=== PATIENT | male | born 1935 | race Caucasian/White ===

== ENCOUNTER 2019-10-19 18:16 | Inpatient (IN) | payer MEDICARE ==
[~2019-10-19] VITALS: Ht 177.8 cm; Wt 100.3 kg
[2019-10-19 18:54] LABS: BASOPHILS ABSOLUTE AUTO 0.03 K/mm3 (0.00-0.23); BASOPHILS PERCENT AUTO 0 % (0-2); EOSINOPHILS ABSOLUTE AUTO 0.02 K/mm3 (0.00-0.68); EOSINOPHILS PERCENT AUTO 0 % (0-6); Hematocrit 41.1 % (37.0-53.0); Hemoglobin 13.8 g/dL (13.5-17.5); IMMATURE GRAN ABSOLUTE AUTO 0.03 K/mm3 (0.00-0.10); IMMATURE GRAN PERCENT AUTO 0 % (0-1); LYMPHOCYTES ABSOLUTE AUTO 1.39 K/mm3 (0.84-5.20); LYMPHOCYTES PERCENT AUTO 15 % (21-46); MONOCYTES ABSOLUTE AUTO 0.77 K/mm3 (0.16-1.47); MONOCYTES PERCENT AUTO 8 % (4-13); Mean Corpuscular HGB 29.6 pg (26.0-34.0); Mean Corpuscular HGB Conc 33.6 g/dL (31.5-36.5); Mean Corpuscular Volume 88 fL (80-100); NEUTROPHILS ABSOLUTE AUTO 7.11 K/mm3 (1.96-9.15); NEUTROPHILS PERCENT AUTO 76 % (41-73); Platelet Count 322 K/mm3 (150-400); RDW Coefficient Variation 13.2 % (11.7-14.2); RDW Standard Deviation 43.1 fL (35.1-46.3); Red Blood Cell Count 4.66 M/mm3 (4.30-5.90); White Blood Cell Count 9.35 K/mm3 (4.00-11.30)
[2019-10-19 19:10] LABS: Alanine Aminotransfer (ALT/SGP 29 U/L (12-78); Albumin, Blood 3.9 g/dL (3.4-5.0); Albumin/Globulin Ratio 0.9 (0.8-1.8); Alk Phos 133 U/L (50-136); Anion Gap 7 mmol/L (6-16); Aspartate Aminotrans (AST/SGOT 27 U/L (12-37); Bilirubin, Total 0.8 mg/dL (0.1-1.0); Blood Urea Nitrogen 18 mg/dL (8-24); Bun/Creatinine Ratio 15.4 (12.0-20.0); CO2, Blood 23 mmol/L (21-32); Calcium, Blood 9.8 mg/dL (8.5-10.1); Chloride, Blood 106 mmol/L (98-108); Creatinine, Blood 1.17 mg/dL (0.60-1.20); Globulin, Blood 4.2 g/dL (2.2-4.0); Glomerular Filtration Rate >60 (60-); Glucose, Blood 130 mg/dL (70-99); Sodium, Blood 136 mmol/L (136-145); Total Protein, Blood 8.1 g/dL (6.4-8.2)
[2019-10-19 19:36] LABS: Source, Urine Clean Catch
[2019-10-19 19:57] LABS: Appearance, Urine Hazy (Clear); Bilirubin, Urine Neg (Neg); Blood, Urine 4+ (Neg); Color, Urine Yellow (P-Yellow); Glucose Qualitative, Urine Neg (Neg); Ketones, Urine 3+ (Neg); Leukocyte Esterase, Urine 3+ (Neg); Nitrite, Urine Pos (Neg); Protein, Urine 2+ (Neg); Urobilinogen, Urine NORM (Normal)
[2019-10-19 20:23] LABS: Bacteria Many /hpf; Red Blood Cells, Urine 0-2 /hpf (0-2); Squamous Epithelial Cells Not Seen /hpf (Few); White Blood Cells, Urine TNTC /hpf (0-5)
[2019-10-19] MEDS ORDERED: TROSPIUM CHLORI60 MG PO (21:07)
[2019-10-19] MEDS ORDERED: Midodrine HCl2.5 MG PO (21:07)
[2019-10-19] MEDS ORDERED: SOLIFENACIN SUCC5 MG PO (21:08)
[2019-10-19] MEDS ORDERED: NEURONTIN300 MG PO (21:08)
[2019-10-19] MEDS ORDERED: MONT4 (21:08)
[2019-10-19] MEDS ORDERED: VENL75ER PO (21:08)
[2019-10-19] MEDS ORDERED: Simvastatin80 MG PO (21:08)
[2019-10-19] MEDS ORDERED: Flonase 0.05% N16 GM (21:08)
--- NOTE | 2019-10-19 21:30 | NUR ---
Patient states he has eaten since last night and nothing to drink since 1030 today. Patient states he understands planned procedure and agrees with plan.
--- NOTE | 2019-10-19 21:35 | NUR ---
PATIENT GAVE HIS LEFT HEARING AID TO HIS AND HE REPORTS LEAVING HIS PARTIAL DENTURES AT HOME.
--- NOTE | 2019-10-19 21:36 | NUR ---
10/19/19 2136 Yaakov Bearden History, Chart, Medications and Allergies reviewed before start of procedure.MONITOR INTACT WITH CONTINUOUS PULSE OXIMETRY AND INTERMITTENT BP.3-LEAD EKG REVIEWED WITH PHYSICIAN PRIOR TO START OF PROCEDURE.O2 VIA N/C INTACT THROUGHOUT SEDATION/PROCEDURE. PATIENT DETERMINED TO BE ASA APPROPRIATE FOR PROPOFOL SEDATION PRIOR TO START OF PROCEDURE BY DR. ESPINOZA.
[2019-10-19] MEDS ORDERED: Aspir 8181 MG PO (22:36)
[2019-10-19] MEDS ORDERED: TAMS.4ER PO (22:37)
[2019-10-20 04:05] LABS: BASOPHILS ABSOLUTE AUTO 0.03 K/mm3 (0.00-0.23); BASOPHILS PERCENT AUTO 0 % (0-2); EOSINOPHILS ABSOLUTE AUTO 0.09 K/mm3 (0.00-0.68); EOSINOPHILS PERCENT AUTO 1 % (0-6); Hematocrit 37.7 % (37.0-53.0); Hemoglobin 12.5 g/dL (13.5-17.5); IMMATURE GRAN ABSOLUTE AUTO 0.01 K/mm3 (0.00-0.10); IMMATURE GRAN PERCENT AUTO 0 % (0-1); LYMPHOCYTES ABSOLUTE AUTO 1.16 K/mm3 (0.84-5.20); LYMPHOCYTES PERCENT AUTO 17 % (21-46); MONOCYTES PERCENT AUTO 13 % (4-13); Mean Corpuscular HGB 29.2 pg (26.0-34.0); Mean Corpuscular HGB Conc 33.2 g/dL (31.5-36.5); Mean Corpuscular Volume 88 fL (80-100); Mean Platelet Volume 9.7 fL (9.1-12.4); NEUTROPHILS ABSOLUTE AUTO 4.83 K/mm3 (1.96-9.15); NEUTROPHILS PERCENT AUTO 69 % (41-73); Platelet Count 264 K/mm3 (150-400); RDW Coefficient Variation 13.3 % (11.7-14.2); RDW Standard Deviation 43.1 fL (35.1-46.3); Red Blood Cell Count 4.28 M/mm3 (4.30-5.90); White Blood Cell Count 7.02 K/mm3 (4.00-11.30)
[2019-10-20 04:23] LABS: Anion Gap 7 mmol/L (6-16); Blood Urea Nitrogen 17 mg/dL (8-24); Bun/Creatinine Ratio 14.8 (12.0-20.0); CO2, Blood 25 mmol/L (21-32); Chloride, Blood 109 mmol/L (98-108); Creatinine, Blood 1.15 mg/dL (0.60-1.20); Glomerular Filtration Rate >60 (60-); Glucose, Blood 103 mg/dL (70-99); Potassium, Blood 3.6 mmol/L (3.5-5.5); Sodium, Blood 141 mmol/L (136-145)
--- NOTE | 2019-10-20 05:52 | NUR ---
SHIFT SUMMARY PT RESTED WELL POST SCOPE. AAOX4/KWIGILLINGOK. PT DENIES DISCOMFORT/NAUSEA/EMESIS ALL NOC SHIFT. UP TO RESTROOM SBA. TOLERATING CLEAR LIQUIDS. GOOD URINE OUTPUT, NO STOOL THIS SHIFT. MIRALAX + SENNA GIVEN PER ORDERS. HTN NOTED + PT REPORTING "ITS NORMAL WHEN I AM IN THE HOSPITAL," WILL CONTINUE TO MONITOR. WAITING CALL FOR POSSIBLE DC TODAY, NUMBER ON CHART. PT RESTING AT THIS TIME WITH CALL LIGHT IN REACH.
--- NOTE | 2019-10-20 14:35 | NUR ---
PT TRANSFERRED TO [facility] VIA GURNEY FROM [facility]. History, Chart, Medications and Allergies reviewed before start of procedure. Lungs clear T/O to Auscultation. PROCEDURE TO BE DONE WITHOUT SEDATION ORDERED BY DOCTOR.
--- NOTE | 2019-10-20 14:49 | NUR ---
10/20/19 1449 MARIEL HODGES History, Chart, Medications and Allergies reviewed before start of procedure. 3-LEAD EKG REVIEWED WITH PHYSICIAN PRIOR TO START OF PROCEDURE.O2 VIA N/C INTACT THROUGHOUT PROCEDURE. PROCEDURE DONE WITHOUT SEDATION PER DR. DENSON.
--- NOTE | 2019-10-20 15:10 | NUR ---
PT ARRIVES POST PROCEDURE. ALERT, ORIENTED. DENIES PAIN OR ABD PRESSURE. GI MD INTO ROOM. PT TO CONTINUE BOWEL PREP FOR PROCEDURE TOMORROW.
--- NOTE | 2019-10-20 17:01 | NUR ---
SHIFT SUMMARY WHILE PT WAS HOPEFUL TO GO HOME TODAY, HIS PLANS CHANGED. PT WAS TAKEN BACK FOR A REPEAT SCOPE AND IS NOW PREPPING WITH [facility] FOR OR TOMORROW. IND IN ROOM. UP TO CHAIR. VOIDING AND HAVING STOOLS.
--- NOTE | 2019-10-21 04:00 | NUR ---
DR. TREVIZO NOTIFIED DR. TREVIZO NOTIFIED THAT PT HAS NOT HAD A BM IN SEVERAL HOURS AND STOOL IS BROWN IN COLOR. NO NEW ORDERS AT THIS TIME. WILL CONT TO MONITOR.
--- NOTE | 2019-10-21 06:42 | NUR ---
SHIFT SUMMARY PT A/OX4 WITH VSS. NO ACUTE CHANGES. IND IN ROOM. STILL HAS SOME ABD DISTENTION, DENIES PAIN. APPEARS TO HAVE SLEPT T/O MOST OF SHIFT. NPO SINCE MIDNIGHT. PLAN FOR SURGERY TODAY. PT IS CURRENTLY RESTING IN BED WITH CALL LIGHT IN REACH AND BED AT LOWEST POSITION.
--- NOTE | 2019-10-21 07:50 | NUR ---
PT TO OR AT THIS TIME.
--- NOTE | 2019-10-21 15:33 | NUR ---
PT ARRIVED BACK TO THE ROOM AT APPROXIMATELY 1310. PT DROWSY BUT ORIENTED. PT'S AT THE BEDSIDE. PT STARTED COUGHING IN PRE-OP AND WAS PLACED IN DROPPLET ISOLATION. VSS. PT HAS DECREASED SENSATION FROM T8 TO T4. HE IS ABLE TO MOVE HIS FEET AND WIGGLE HIS TOES.
[2019-10-21 20:30] LABS: Adenovirus Not Detected (NOT DETECT); Coronavirus 229E Not Detected (NOT DETECT); Coronavirus HKU1 Not Detected (NOT DETECT); Coronavirus NL63 Not Detected (NOT DETECT)
[2019-10-21 20:31] LABS: Bordetella pertussis Not Detected (NOT DETECT); Chlamydophila pneumoniae Not Detected (NOT DETECT); Coronavirus OC43 Not Detected (NOT DETECT); Human Metapneumovirus Not Detected (NOT DETECT); Human Rhinovirus/Enterovirus Not Detected (NOT DETECT); Influenza A/2009-H1 Not Detected (NOT DETECT); Influenza A/H1 Not Detected (NOT DETECT); Influenza A/H3 Not Detected (NOT DETECT); Influenza B Not Detected (NOT DETECT); Mycoplasma pneumoniae Not Detected (NOT DETECT); Parainfluenza Virus 1 Not Detected (NOT DETECT); Parainfluenza Virus 2 Not Detected (NOT DETECT); Parainfluenza Virus 3 Not Detected (NOT DETECT); Parainfluenza Virus 4 Not Detected (NOT DETECT); Respiratory Syncytial Virus Not Detected (NOT DETECT)
--- NOTE | 2019-10-22 04:08 | NUR ---
SMALL AMOUNT SANGUINOUS DRAINAGE NOTED AROUND EPIDURAL SITE. PT STATES PAIN IS MANAGED WELL CURRENTLY. DRAINAGE IS DRY UNDER DRESSING.
--- NOTE | 2019-10-22 04:32 | NUR ---
SHIFT SUMMARY AA0X4, VSS. PT DENIES GAS TODAY. PICCO DRESSING COMPRESSED, GREEN LIGHT ON, DRY SS DRAINAGE. PT REPORTS PAIN TOLERABLE WITH EPIDURAL. USING BUTTON. DRESSING CHANGED BY MD AT BEGINNING OF SHIFT. SOME SS DRAINAGE IN DRESSING UPON ASSESSMENT. DENIES NUMBNESS WITH ASSESSMENT. PT REPOSITIONING SELF FREQUENTLY. SOSA PATENT AND DRAINING. EATING ICE CHIPS OCCASIONALLY.
[2019-10-22 05:27] LABS: BASOPHILS ABSOLUTE AUTO 0.01 K/mm3 (0.00-0.23); BASOPHILS PERCENT AUTO 0 % (0-2); EOSINOPHILS PERCENT AUTO 0 % (0-6); Hemoglobin 10.7 g/dL (13.5-17.5); IMMATURE GRAN ABSOLUTE AUTO 0.03 K/mm3 (0.00-0.10); IMMATURE GRAN PERCENT AUTO 0 % (0-1); LYMPHOCYTES ABSOLUTE AUTO 0.98 K/mm3 (0.84-5.20); LYMPHOCYTES PERCENT AUTO 10 % (21-46); MONOCYTES ABSOLUTE AUTO 0.95 K/mm3 (0.16-1.47); MONOCYTES PERCENT AUTO 10 % (4-13); Mean Corpuscular HGB 29.5 pg (26.0-34.0); Mean Corpuscular HGB Conc 33.4 g/dL (31.5-36.5); Mean Corpuscular Volume 88 fL (80-100); Mean Platelet Volume 9.9 fL (9.1-12.4); NEUTROPHILS ABSOLUTE AUTO 7.47 K/mm3 (1.96-9.15); NEUTROPHILS PERCENT AUTO 79 % (41-73); Platelet Count 224 K/mm3 (150-400); RDW Coefficient Variation 13.6 % (11.7-14.2); RDW Standard Deviation 43.9 fL (35.1-46.3); Red Blood Cell Count 3.63 M/mm3 (4.30-5.90); White Blood Cell Count 9.44 K/mm3 (4.00-11.30)
[2019-10-22 05:48] LABS: Anion Gap 6 mmol/L (6-16); Blood Urea Nitrogen 14 mg/dL (8-24); Bun/Creatinine Ratio 14.5 (12.0-20.0); CO2, Blood 25 mmol/L (21-32); Calcium, Blood 8.3 mg/dL (8.5-10.1); Chloride, Blood 107 mmol/L (98-108); Creatinine, Blood 0.97 mg/dL (0.60-1.20); Glomerular Filtration Rate >60 (60-); Glucose, Blood 115 mg/dL (70-99); Potassium, Blood 3.4 mmol/L (3.5-5.5); Sodium, Blood 138 mmol/L (136-145)
--- NOTE | 2019-10-22 15:06 | NUR ---
PT HAS RESTED IN HIS ROOM. HE HAS BEEN OOB TO THE CHAIR AND CALLS APPROPRIATELY. VSS. WILL CONTINUE TO MONITOR.
--- NOTE | 2019-10-22 18:29 | NUR ---
SHIFT SUMMARY PAIN HAS BEEN WELL MANAGED WITH EPIDURAL THIS SHIFT. EPIDURAL SITE APPEARS TO HAVE NO FURTHER DRAINAGE SINCE NOON. PT WAS ABLE TO GET OOB TO THE CHAIR FOR LUNCH WITH MINIMAL ASSIST. PT DENIES PASSING FLATUS THIS SHIFT. PT HAS DECREASED SENSATION FROM T8-L3 FROM EPIDURAL. PT STARTED ON CLEAR LIQUIDS, HE IS TOLERATING WELL. VSS. WILL MONITOR UNTIL REPORT TO ONCOMING RN.
--- NOTE | 2019-10-23 07:35 | NUR ---
POD 2 S/P COLECTOMY. PT VSS, SATS >90% ON 2LNC WHILE AWAKE, PT DID NEED 7LO2 BLED INTO CPAP TO KEEP SATS >90% WHILE SLEEPING. SATS DROPPED TO 85% W/CPAP ONLY. TERESA DRESSING INTACT W/NO ACTIVE DRNG. EPIDURAL INTACT, W/SCANT LEAKAGE, NO CHANGES T/O SHIFT. PT REP FULL SENSATION, NO N/T, REP PAIN MINIMAL 2/10. PT INGRID CLEAR LIQ PO, NO N/V, REP NO FLATUS YET. CONT OX IN PLACE, PT USING CALL LIGHT FOR ASSISTANCE. ISOLATION PRECAUTIONS MAINTAINED. REP GIVEN TO DAY RN.
--- NOTE | 2019-10-23 09:44 | NUR ---
ANESTHISIA HERE AND DC'D EPIDURAL.
--- NOTE | 2019-10-23 10:14 | NUR ---
DR ROMANO HERE TO SEE PT, DISCUSSED PT'S STATUS/CONCERN OF MIDODRINE.
--- NOTE | 2019-10-23 11:22 | NUR ---
PER DR ROMANO AND PRIMARY RN PT REQUESTING NEW DOCTOR AND WOULD ALSO LIKE TO SPEAK WITH THE PATIENT ADVOCATE. PT ADVOCATE NOTIFIED AND HER NUMBER WAS GIVEN TO PRIMARY RN SO PT COULD CALL AND SPEAK WITH HER. HOSPITALIST OFFICE CONTACTED BY THIS RN AND PT RE-ASSIGNED TO DR OLIVAREZ WHO WAS NOTIFIED BY THIS RN AT APROX 1115.
--- NOTE | 2019-10-23 11:55 | NUR ---
10/23/19 1155 Dalia Ross VERIFICATIONS: EDIT CHART.
--- NOTE | 2019-10-23 16:02 | NUR ---
IAN PINEDO DC'D PER ANESTHESIA.
--- NOTE | 2019-10-23 16:41 | NUR ---
SHIFT SUMMARY PT TOLERATING C.L. DIET. PT BEEN UP IN ROOM WITH STEADY GAIT. PT SOSA RECENTLY DC'D EPIDURAL WAS OUT EARLIER TODAY. PT ALSO GIVEN LOVENOX ORDERED. PT CONT TO DENY WANTING ANY PAIN MEDICATION EVEN THE TYLENOL. PT REQUESTED DIFFERENT DR EARLIER WELL TO TALK WITH PT ADVOCATE. PT WAS SEEN BY DR OLIVAREZ AND WAS GIVEN THE NUMBER TO CALL AND TALK WITH THE PT ADVOCATE. PT BEEN ASSISTED WITH ADL'S PRN. DISCUSSED PT'S VS INCLUIDING BP WITH DR OLIVAREZ. PT REPORTED PASSING GAS THIS AFTERNOON WHICH IS UNUSUAL FOR HIM. ALSO REPORTED NO OTHER BM'S SINCE THIS AM, WHICH HE HAD 2, SEE I/O. PT GIVEN URINAL TO VOID IN.
--- NOTE | 2019-10-24 04:37 | NUR ---
SHIFT SUMMARY PT IS A/O X4 AND IND. IN ROOM WITH OCC. STANDBY ASSIST FOR LINES. PT HAS BEEN WEARING CPAP WITH 7L O2 DURING THE NIGHT. BIOX IN PLACE. PT HAS AMBULATED TO BATHROOM MULT TIMES DURING THE NIGHT; VOIDING AND HAVING BMS. TOLERATING PO INTAKE. RESPIRATORY CARE HAS BEEN IN TO SEE PT DURING THE SHIFT. ASSISTED [facility] ADL'S PRN.
--- NOTE | 2019-10-24 08:54 | NUR ---
DR OLIVAREZ HERE TO SEE PT. DISCUSSED PT'S STATUS INCLUDING VS AND BIPAP LAST NIGHT WITH O2 PER HS RN.
--- NOTE | 2019-10-24 15:21 | NUR ---
[facility] LAB CALLED TO NOTIFY RN THAT TEST WAS NEGATIVE.
--- NOTE | 2019-10-24 15:36 | NUR ---
DR NOTIFIED OF [facility].
--- NOTE | 2019-10-24 16:00 | NUR ---
SHIFT SUMMARY PT EATING AND DRINKING, VOIDING AND HAD BM TODAY. PT R/O COVID CAME BACK NEGATIVE TODAY. PT BEEN ASSISTED WITH ADL'S PRN. PT BEEN UP IND IN ROOM. PT OFFERED SHOWER AND DECLINED EARLIER, LINEN CHANGED EARLIER TODAY. DR OLIVAREZ NOTIFIED OF LAB BACK THIS AFTERNOON.
--- NOTE | 2019-10-24 17:02 | NUR ---
REPORT GIVEN TO Reji WHO IS TAKING OVER CARE AT THIS TIME.
--- NOTE | 2019-10-25 04:02 | NUR ---
SHIFT SUMMARY POD#4. AAOX4/ZUNI. DISCOMFORT AT TOLERABLE LEVEL T/O NIGHT, NO PAIN MEDS OR NAUSEA MEDICATION ADMINISTERED. ABD INCISION WITH TERESA C/D/I. PT UP INDEPENDENT IN ROOM. GOOD PO INTAKE + OUTPUT. PT REPORTING LARGE AMOUNTS OF FLATUS + DIARRHEA, HELD STOOL SOFTNERS. PT RESTED WELL T/O NIGHT WITH CPAP IN PLACE WITH 6L O2 ADDITION. SLEEP STUDY STILL IN PROGRESS. HTN NOTED, NO ACUTE CHANGE + MD AWARE PER PROGRESS NOTES. NO ACUTE CHANGES OVER NIGHT. CALL LIGHT WITHIN REACH AT THIS TIME.
--- NOTE | 2019-10-25 09:13 | NUR ---
DR MADDOX ROUNDED. TERESA REMOVED. OK FOR DC.
[2019-10-25] MEDS ORDERED: ACET325 PO (09:40)
[2019-10-25] MEDS ORDERED: Doxycycline Mo100 M1 PO (09:41)
[2019-10-25] MEDS ORDERED: GAVILAX17 GM PO (09:42)
--- NOTE | 2019-10-25 10:10 | NUR ---
DISCHARGE PT ESCORTED OUT VIA W/C. SCRIPT CALLED TO [facility] PER PT REQUEST. PT STATES UNDERSTANDING OF INSTRUCTIONS.
== END 2019-10-25 10:15 | disposition home or self-care (01) | DRG 329 ==
LOC: ER 18:16 → SURS 21:28
PROVIDERS: Physician Assistant; Surgery; ADMIT Internal Medicine
PROC: 0D7N8ZZ Dilation of Sigmoid Colon, Via Natural or Artificial Opening Endoscopic (ICD-10-PCS; 2019-10-19)
PROC: 0D1M4Z4 Bypass Descending Colon to Cutaneous, Percutaneous Endoscopic Approach (ICD-10-PCS; 2019-10-21)
PROC: 0DTN4ZZ Resection of Sigmoid Colon, Percutaneous Endoscopic Approach (ICD-10-PCS; principal; 2019-10-21 07:00)
DX: K56.2 Volvulus (principal); J96.01 Acute respiratory failure with hypoxia; J18.9 Pneumonia, unspecified organism; N39.0 Urinary tract infection, site not specified; I10 Essential (primary) hypertension; E87.6 Hypokalemia; B96.20 Unspecified Escherichia coli [E. coli] as the cause of diseases classified elsewhere; Z85.46 Personal history of malignant neoplasm of prostate; J45.909 Unspecified asthma, uncomplicated; E78.5 Hyperlipidemia, unspecified; F32.9 Major depressive disorder, single episode, unspecified; N40.1 Benign prostatic hyperplasia with lower urinary tract symptoms
CPT/HCPCS: 0099U; 36415; 71045; 74018; 74176; 80048; 80053; 81001; 83605; 83690; 85025; 86850; 86900; 86901; 87077; 87086; 87186; 88307; 93005; 93010; 94762; 96361; 96374; 99285-25; A9270; A9270-GY; J0360; J0456; J0696; J1100; J1650; J1885; J2250; J2405; J2704; J3010; J7030; J7050; J7120; U0002